=== PATIENT | female | born 1980 | race Caucasian/White ===

== ENCOUNTER 2017-11-01 05:48 | Day surgery (SDC) | payer OTHER ==
[2017-11-01] MEDS ORDERED: LIDOCAINE 2% (SDV) 5 ML INJ (06:21)
[2017-11-01] MEDS ORDERED: GLYCOPYRROLATE 0.4 MG INJ (06:21)
[2017-11-01] MEDS ORDERED: ROCURONIUM 50 MG INJ (06:22)
[2017-11-01] MEDS ORDERED: MIDAZOLAM 1 MG/ML 2 ML INJ (06:22)
[2017-11-01] MEDS ORDERED: FENTAnyl 50 MCG/ML VIAL (06:22)
[2017-11-01] MEDS ORDERED: NEOSTIGMINE 3 MG/3 ML SYRINGE (06:22)
[2017-11-01] MEDS ORDERED: PROPOFOL 20 ML (06:22)
[2017-11-01] MEDS ORDERED: ONDANSETRON 4 MG INJ (06:23)
[2017-11-01] MEDS ORDERED: DEXAMETHASONE 4 MG/ML 1 ML INJ (06:23)
[2017-11-01] MEDS ORDERED: FENTAnyl 50 MCG/ML VIAL IV ×2 (06:30)
[2017-11-01] MEDS ORDERED: MEPERIDINE 25 MG INJ IV (06:30)
[2017-11-01] MEDS ORDERED: EPHEDrine SULFATE 50 MG/5 ML SYG IV (06:30)
[2017-11-01] MEDS ORDERED: hydrALAzine 20 MG INJ IV (06:30)
[2017-11-01] MEDS ORDERED: OXYCODONE/ACETAMINOPHEN (5/325) TAB PO ×2 (06:30→09:00)
[2017-11-01] MEDS ORDERED: LABETALOL HCL 20MG INJ IV (06:30)
[2017-11-01] MEDS ORDERED: MIDAZOLAM 1 MG/ML 2 ML INJ IV (06:30)
[2017-11-01] MEDS ORDERED: morphine (1 MG/ML) 10ML SYRINGE IV ×3 (06:30)
[2017-11-01] MEDS ORDERED: DIPHENHYDRAMINE 50 MG INJ IV (06:30)
[2017-11-01] MEDS ORDERED: ONDANSETRON 4 MG INJ IV ×2 (06:30→09:00)
[2017-11-01] MEDS ORDERED: ATROPINE 1 MG/10 ML SYRINGE IV (06:30)
[2017-11-01] MEDS ORDERED: HYDROmorphONE 1 MG/5 ML IV SYRINGE IV ×3 (06:30)
[2017-11-01] MEDS ORDERED: CEFAZOLIN 1 GM INJ (07:00)
[2017-11-01] MEDS ORDERED: LACTATED RINGER'S 1,000 ML IV (08:38)
[2017-11-01] MEDS: OXYCODONE/ACETAMINOPHEN (5/325) TAB PO (08:59)
[2017-11-01] MEDS ORDERED: morphine 2 MG INJ IV (09:00)
[2017-11-01] MEDS ORDERED: IBUPROFEN 600 MG TAB PO (09:00)
[2017-11-01] MEDS ORDERED: ACETAMINOPHEN 325 MG TAB PO (09:00)
== END 2017-11-01 10:10 | disposition home or self-care (01) ==
LOC: SDS 05:48
DX: T83.32XA Displacement of intrauterine contraceptive device, initial encounter (principal)
CPT/HCPCS: 58562; 84703